=== PATIENT | female | born 1970 | race Caucasian/White ===

== ENCOUNTER 2016-09-03 10:05 | Emergency (ER) | payer OTHER ==
[~2016-09-03] VITALS: Ht 154.9 cm; Wt 91.0 kg
[~2016-09-03 10:05] MED LIST: DOES NOT KNOW NAME PO
[2016-09-03 10:08] VITALS: BP 154/97
== END 2016-09-03 11:31 | disposition home or self-care (01) ==
LOC: ED 11:11
DX: M79.662 Pain in left lower leg (principal)

== ENCOUNTER 2020-04-16 17:06 | Emergency (ER) | payer OTHER ==
[~2020-04-16] VITALS: Ht 154.9 cm; Wt 102.4 kg
[2020-04-16 17:11] VITALS: BP 160/89
--- NOTE | 2020-04-16 18:25 | NUR ---
Ice pack and knee immobilizer applied, provided with crutches Reviewed poc cms intact post intervention
== END 2020-04-16 18:29 | disposition home or self-care (01) ==
LOC: ED 18:10
DX: M25.561 Pain in right knee (principal); M25.461 Effusion, right knee; M79.89 Other specified soft tissue disorders; F17.200 Nicotine dependence, unspecified, uncomplicated
CPT/HCPCS: 29505; 99283